=== PATIENT | female | born 2000 | race Caucasian/White ===

== ENCOUNTER 2022-10-17 06:57 | Outpatient (RCR) | payer OTHER, SELFPAY | END 2022-10-30 11:15 | disposition home or self-care (01) | LOC: PT 06:57 | PROVIDERS: Visit Provider Student in an Organized Health Care Education/Training Program | DX: M89.9 Disorder of bone, unspecified (principal); M94.9 Disorder of cartilage, unspecified; M25.572 Pain in left ankle and joints of left foot; M25.672 Stiffness of left ankle, not elsewhere classified | CPT/HCPCS: 97110; 97161 ==

== ENCOUNTER 2022-11-14 07:34 | Outpatient (OUT) | payer OTHER, SELFPAY ==
--- NOTE | 2022-11-14 07:45 | MR_ITS ---
The [address] [address] Patient Name: EMMANUEL LEON MRN: [id number] date: 2000 Sex: F Assigned Patient Location: MRI Current Patient Location: MRI Accession/Order Number: [id number] Exam Date: 11/14/2022 08:00 Report Date: 11/14/2022 11:11 At the request of: ANIVAL RUDOLPH Procedure: MR ankle RT wo con EXAM: MR ankle RT wo con REASON FOR EXAM: Right Ankle Instability M25.371. TECHNIQUE: Multiplanar, multisequence imaging of the right ankle was performed without contrast COMPARISON: Plain radiograph 09/11/2022. FINDINGS: Mild fusiform thickening and intermediate signal involving the Achilles tendon is consistent with tendinosis. No tear identified. The plantar fascia is intact. Laterally, the peroneal tendons demonstrate mild thickening and intermediate signal consistent with tendinosis. No tear identified. The superficial peroneal retinaculum is intact. Thickening and intermediate signal involving the anterior talofibular and calcaneofibular ligaments is consistent with prior lateral ligamentous injury. Well-corticated ossific bodies along the inferior margin of the distal fibula are also consistent with prior lateral ligamentous injury. Small amount of fluid is present within the anterolateral gutter. The remaining lateral ligaments are intact. Medially, the medial flexor tendons demonstrate normal thickness and signal without tendinosis or tear. The deep deltoid ligament is intact. The spring ligament is intact. Lisfranc ligament is partially imaged and appears intact. Anteriorly, the anterior extensor tendons demonstrate normal thickness and signal without tendinosis or tear. The bone marrow signal is without acute fracture or osteonecrosis. There is a full-thickness chondral defect involving the lateral talar dome spanning 1 cm in AP dimension. The displaced chondral fragment is not confidently identified. No evidence of an unstable osteochondral lesion. Small moderate tibiotalar and subtalar effusions are present. The subtalar joint is congruent. The sinus tarsi is nonedematous. The midfoot is congruent. The plantar musculature demonstrates normal bulk and signal. Remaining soft tissues are unremarkable. MR/MR ankle RT wo con IMPRESSION: 1. Sequela of prior lateral ligamentous injury. No evidence of acute lateral ligamentous injury. 2. 1 cm chondral defect involving the lateral talar dome. No evidence of an unstable osteochondral lesion. 3. Tibiotalar and subtalar effusion. 4. Achilles and peroneal tendinosis without tear. Electronically authenticated by: PAIGE NG Date: 11/14/2022 11:11
== END 2022-11-14 07:35 | disposition home or self-care (01) ==
PROVIDERS: Visit Provider Physician Assistant
DX: M25.371 Other instability, right ankle (principal); M94.9 Disorder of cartilage, unspecified; S93.401S Sprain of unspecified ligament of right ankle, sequela; M25.471 Effusion, right ankle; M76.61 Achilles tendinitis, right leg; M76.71 Peroneal tendinitis, right leg; X58.XXXS Exposure to other specified factors, sequela
CPT/HCPCS: 73721

== ENCOUNTER 2022-12-27 09:30 | Outpatient (OUT) | payer OTHER, SELFPAY ==
--- NOTE | 2022-12-27 10:04 | P.GSHP_ITS ---
History of Present Illness History of Present Illness Chief complaint: osteochondralitis, dissecans right ankle Narrative: Patient presents for preadmission testing. The patient reports she had an ankle fracture approximately two years ago and has increased pain and instability. She states she did take meloxicam with no relief off her symptoms. She denies numbness, tingling, weakness, or any other complaints. Review of Systems ROS Narrative REVIEW OF SYSTEMS: Negative except as stated in HPI, ten or more systems reviewed. Constitutional: No fever , chills, weakness ENT: No sore throat or epistaxis Cardiovascular: No edema, chest pain, palpitations, or activity intolerance Respiratory: No shortness of breath, cough, or wheezing Gastrointestinal: No abdominal pain, constipation, diarrhea, or vomiting Genitourinary: No dysuria or hematuria Neurological: No numbness, tingling, weakness, or headache Psychiatric: No mood changes [facility] Medical History (Updated 12/27/22 @ 09:48 by Maritza Rosen NP) Surgical History (Updated 12/27/22 @ 09:48 by Maritza Rosen NP) Family History (Updated 12/27/22 @ 09:48 by Maritza Rosen NP) Other Family history of hypertension Family history of skin cancer Social History (Updated 12/27/22 @ 09:45 by Maritza Rosen NP) Within the past year, how often did you have a drink containing alcohol: 2-4 times a month Previous occupational history: Commissioner [employer] Highest level of school completed/degree received: Bachelor's degree Meds Home Medications and Allergies Home Medications Medication Instructions Recorded Confirmed Type minoxidil 2.5 mg tablet 2.5 mg PO QDAY 12/27/22 12/27/22 History spironolactone 100 mg tablet 100 mg PO QDAY 12/27/22 12/27/22 History Allergies Allergy/AdvReac Type Severity Reaction Status Date / Time No Known Drug Allergies Allergy Verified 12/27/22 09:43 Exam Narrative Exam Narrative: Constitutional: Awake, alert, comfortable, well-appearing, nontoxic, interactive, vital signs as charted Head: Normocephalic, atraumatic Neck: Supple, normal appearance, normal range of motion, no meningeal signs, no lymphadenopathy Respiratory: No respiratory distress, breath sounds clear Cardiovascular: Regular rate and rhythm, strong and regular heart tones Musculoskeletal: Normal gait, no swelling or edema, Right lateral ankle tenderness with palpation, good strength, full range of motion, good capillary refill, sensation intact Skin: No rashes or induration, no lesions, only visible skin inspected Neuro: No neurological deficits, normal sensation Psychiatric: Oriented ?3, normal affect Assessment and Plan Assessment and Plan (1) Ankle instability: (2) Ankle pain: (3) Avulsion fracture of lateral malleolus: (4) Disorder of cartilage: (5) Osteochondritis dissecans: (6) Post-traumatic osteoarthritis, right ankle and foot: (7) Peroneal tendinitis: Plan Right ankle arthroscopic joint debridement, arthrotomy, repair of osteochondral defect, BMAC, stress exam under anesthesia, ligament and tendon repairs as needed scheduled with Dr. Velazco 01/10/2023.
== END 2022-12-27 09:31 | disposition home or self-care (01) ==
LOC: PST 09:31
PROVIDERS: PCP Family Medicine; Visit Provider Podiatrist Foot & Ankle Surgery
DX: Z01.818 Encounter for other preprocedural examination (principal); M93.271 Osteochondritis dissecans, right ankle and joints of right foot; M19.171 Post-traumatic osteoarthritis, right ankle and foot
CPT/HCPCS: G0463

== ENCOUNTER 2023-01-10 06:02 | Day surgery (SDC) | payer OTHER, SELFPAY ==
[2022-12-27 09:57] VITALS: BP 109/66; PULSE 68; RESP 14; TEMP 36.4; O2SAT 97; BMI 26.9
[2023-01-10] VITALS (12 sets, daily range): BP systolic 111–141; BP diastolic 63–84; PULSE 61–127; RESP 12–24; TEMP 36.7–37.7; O2SAT 94–100; BMI 26.9
--- NOTE | 2023-01-10 | FL_ITS ---
[address] [address] Patient Name: EMMANUEL LEON MRN: [id number] date: 2000 Sex: F Assigned Patient Location: [facility] Current Patient Location: [facility] Accession/Order Number: [id number] Exam Date: 01/10/2023 07:59 Report Date: 01/11/2023 10:04 At the request of: DEMARCUS BERMEO Procedure: FL fluoroscopy <1hr NON-READ EXAM: FL fluoroscopy <1hr NON-READ HISTORY: TECHNIQUE: FINDINGS: Please see Operative Report. Electronically authenticated by: RADIOLOGIST NO Date: 01/11/2023 10:04
[2023-01-10 06:14] LABS: Basophils Percent Auto 0.1 % (0.2-2.0); Eosinophils Absolute Auto 0.1 10^3/uL (0.0-0.7); Eosinophils Percent Auto 0.7 % (0.9-7.0); Hematocrit 39.2 % (36.0-48.0); Hemoglobin 13.4 g/dL (12.0-16.0); Immature Granulocytes Abs Auto 0.02 10^3/uL (0.00-0.03); Immature Granulocytes Pct Auto 0.3 % (0.0-0.5); Lymphocytes Absolute Auto 2.8 10^3/uL (1.2-3.8); Lymphocytes Percent Auto 38.3 % (20.5-60.0); Mean Corpuscular HGB Conc 34.2 g/dL (29.9-35.2); Mean Corpuscular Hemoglobin 29.3 pg (26.7-34.0); Mean Corpuscular Volume 85.6 fL (81.0-99.0); Mean Platelet Volume 10.2 fL (9.5-13.5); Monocytes Absolute Auto 0.5 10^3/uL (0.3-0.8); Monocytes Percent Auto 6.5 % (1.7-12.0); Neutrophils Absolute Auto 3.9 10^3/uL (1.4-6.5); Neutrophils Percent Auto 54.1 % (43.0-75.0); Platelet Count 240 10^3/uL (150-450); Red Blood Count 4.58 10^6/uL (4.20-5.40); Red Cell Distribution Width 11.8 % (11.0-15.0); White Blood Count 7.2 10^3/uL (4.0-11.0)
[2023-01-10 06:44] LABS: HCG Qualitative NEGATIVE (NEGATIVE)
[2023-01-10 06:55] LABS: Glucometer 92 mg/dL (74-106)
[2023-01-10] MEDS: LACTATED RINGER'S SOLUTION 1,000 ML 50 ML IV ×2 (06:58→11:23)
[2023-01-10] MEDS: CEFAZOLIN SODIUM/DEXTROSE,ISO 2 GM/50 ML PIGGYBACK IV (08:02)
--- NOTE | 2023-01-10 08:13 | PC.NURSE ---
time out performed as documented. placed 2L O2 via nasal cannula on pt per policy and then positioned prone per anesthesia. pt medicated per and the block was noted to start at 0734. pt tolerated procedure well and had no complaints throughout. vitals monitored by the property underwriter throughout procedure and were WNL. block completed at 0755,once completed pt repositioned supine with bed in lowest positioned,siderails up and call light within reach. pt will be monitored until she is taken back to the OR.
[2023-01-10] MEDS: PROMETHAZINE HCL 25 MG/ML VIAL 12.5 MG IV (11:30)
--- NOTE | 2023-01-10 11:56 | PC.NURSE ---
pts toes are warm and pink with good capillary refill
--- NOTE | 2023-01-10 11:58 | XR_ITS ---
The [address] [address] Patient Name: EMMANUEL LEON MRN: [id number] date: 2000 Sex: F Assigned Patient Location: [facility] Current Patient Location: Accession/Order Number: [id number] Exam Date: 01/10/2023 11:50 Report Date: 01/10/2023 17:48 At the request of: DEMARCUS BERMEO Procedure: XR ankle RT min 3V EXAM: XR ankle RT min 3V HISTORY: Post op COMPARISON: 09/11/2022 TECHNIQUE: 3 views of the right ankle were obtained. FINDINGS: The study is limited by the posterior mold. A faint calcification at the tip of the lateral malleolus is noted suggesting an old injury. There is no evidence of an acute fracture or dislocation. The mortise is intact. No osteochondral injury is identified. Soft tissue swelling laterally is noted. XR/XR ankle RT min 3V IMPRESSION: No acute fracture or dislocation. The extremity is wrapped in a posterior mold. The joint spaces are intact. Electronically authenticated by: DEMARCUS GUADALUPE Date: 01/10/2023 17:48
--- NOTE | 2023-01-10 12:00 | PM.ORONB ---
Brief Operative Note Date of procedure: 01/10/23 Pre-op diagnosis: right ankle OCD, arthritis, and possible instability Post-op diagnosis: other (RIGHT osteochondral defect of talus, posttraumatic ankle arthritis, lateral ankle instability secondary to ankle sprain, peroneal tendinosis, avulsion fracture from fibula, ankle impingement) Procedure: PROCEDURES PERFORMED: Ankle arthroscopy with extensive debridement, ankle arthrotomy, lateral ankle stabilization with modified Brostrom-Hyman, peroneal tendon repair, harvest and transplantation of bone marrow aspirate concentrate, intraoperative stress examination under fluoroscopy Application of short leg splint with all procedures performed on the RIGHT ankle INTRAOPERATIVE FINDINGS: stress examination revealed positive anterior drawer however syndesmosis and varus/valgus tilt were determined to be stable. Arthroscopy revealed advanced chondromalacia of the tibiotalar joint given patient's age. Stable contained osteochondral defect of lateral talar dome. Avulsion fracture of the fibula found and excised from the fibular tip. Thickening of the anterior talofibular ligament. Chronic tendinosis and intratendinous degeneration consistent with chronic pathology of the peroneal brevis tendon. Bone quality within normal limits given patient's age and gender PROCEDURE IN DETAIL: Patient was identified in pre op and consent was reviewed. Correct side and site were identified and marked. Pre-op antibiotics were started. Patient was brought to OR suite and place on table in a supine position. General anesthesia was administered. Tourniquet applied. Operative extremity was prepped and draped in usual sterile fashion. Formal time-out was performed. under live fluoroscopy the ankle was stressed in all planes noting a positive anterior drawer. Varus and valgus tilt as well as syndesmotic stress testing revealed stability in all other planes. a stab incision was placed 1 cm medial and 1 cm distal to the tibial tubercle and blunt dissection was taken down to bone. A trocar and cannula were inserted into the proximal tibia metaphysis and the trocar was removed. 60 mL of bone marrow aspirate was then obtained using the cannula and appropriate syringes. The bone marrow aspirate was then passed the office back table to be spun down. 3 mL of bone marrow aspirate concentrate were then drawn off the BMA and placed back onto the sterile table for later use. A 15 blade was used to create anterior medial ankle portal followed by use of hemostat and trochar then the arthroscopic camera was inserted. Anterior lateral portal was similarly created in standard safe location after identifying intermediate dorsal cutaneous nerve. All impingement and synovitic tissue was removed using a 3.5 mm aggressive shaver. after impingement and synovitic tissue was excised and osteochondral defect was noted on the lateral talar dome but did appear to be contained within the lateral talar wall. A probe was used and the defect was stable without adjacent fissuring. an arthrotomy waas then performed extending the lateral scope portal which aided in determining the borders of the osteochondral defect. the arthrotomy also allowed a targeting guide to be inserted into the extended lateral portal. using the arthroscopic camera in the medial portal starting guide was used to ensure ideal placement for drilling of the osteochondral defect. Using the guide K wires were placed through the guide multiple planes then a cannulated 1.7 mm drill bit was used to drill the defect from an inferior to superior direction. The cartilage of the talus was not invaded and drilling was done so under arthroscopic guidance. Arthroscopic instrumention was then removed. The portals were then closed with nylon suture. Lateral ankle incision was made over the posterior aspect of the fibular malleolus and extend past the fibular tip. Dissection was then carried posteriorly. Peroneal retinaculum and tendon sheath were incised to expose the peroneal tendons. The peroneal tendons were dislocated from the fibular groove for close inspection. There was synovitis and low lying peroneal brevis muscle which was excised. Inspection of the tendons demonstrated significant thickening of the peroneal brevis tendon. The brevis was then debrided removing degenerated tissue. The brevis was then repaired using a running absorbable stitch and was re-tubularized. The tendons were then relocated in the fibular groove which was of adequate depth. Range of motion of the ankle demonstrated no subluxation and smooth gliding of the peroneal tendons. Lateral Ankle Stabilization: Meticulous blunt dissection was used to expose the ATFL and associated capsular tissue. The ATFL was thickend and lax upon stress examination. The ATFL was incised and arthrotomy was performed. The periosteum off of the distal lateral fibula was elevated from the fibular tip. the avulsion fracture was found at the distal fibular tip and was excised and passed the back table. A rongeur was used on the distal anterior fibular malleolus to create a trough. Drill holes were created in the trough created on distal fibula. Two 3.3 mm suture anchors were inserted into the drill holes created according to manufacture's directions. All sutures in all were passed through the ATFL then passed through the extensor retinaculum. The foot was then held in maximum dorsiflexion and eversion and the sutures were tied. The sutures were then passed through the periosteum of the fibula to reapproximate all capsular and periosteal tissue. The sututres were then tied and cut. Anterior drawer was negative and ankle had good ROM. The surgical site was irrigated with copious amounts sterile saline. The tendon sheath was reapproximated and the superior peroneal retinaculum repaired with a pants over vest absorbable suture. Skin was closed in layers and the tourniquet was deflated with a prompt hyperemic response. The bone marrow aspirate concentrate was then injected into the ankle joint. A dry sterile dressing consisting of Xeroform on the incisions followed by 4 x 4 gauze, ABDs, and Kerlix were applied. Multiple layers of cast padding were then applied to ensure all bony prominences were well-padded. A plaster posterior splint was then applied which was held in place by Juventino wraps. Capillary refill time to all digits was evaluated and had appropriate response. POSTOPERATIVE PLAN: Discharge home under family's care Post op instructions provided verbally and written prescription(s) were placed in chart NWB operative foot/ankle x3 wks Follow-up in 1 week Implants: Medline suture anchors 3.3 mm (x2) Anesthesia: regional and General-LMA Surgeon: Alphonso Velazco Estimated blood loss (mL): 100 Pathology: other (avulsion fracture and peroneal tendon) Condition: stable Disposition: PACU Preoperative Details Reason for procedure: patient is a 22-year-old female who sustained right ankle fracture approximately two years ago. She been initially treated with physical therapy ASO ankle brace and anti-inflammatories such as naproxen without help. She presents me relating to deep ankle pain with popping and catching of the ankle joint, instability symptoms and frequent ankle sprains as well as pain over the peroneal tendons. MRI was obtained and showed prior damage to the anterior talofibular ligament consistent with prior sprain, 1 cm osteochondral defect on the lateral talar dome, peroneal tendinosis all of which were symptomatic on examination. the osteochondral defect of the large did appear to be contained and stable. MRI also showed Achilles tendinosis which is currently asymptomatic. Due to her failure to respond to nonsurgical care she wished to proceed with surgical intervention. I discussed all the potential risks and benefits and answered all of her questions. Of note I highlighted at there is concern for recurrent/recalcitrant ankle pain despite surgery from worsening arthritis and impingement. Also potential for repeat ankle sprain and peroneal tendon tear. Given her age and activity level it was stressed to her that she will likely require further surgery in the future but the goal of the surgery is to alleviate pain and enhance function.
[2023-01-10 12:15] LABS: Glucometer 101 mg/dL (74-106)
[2023-01-10] MEDS: TRAMADOL HCL 50 MG TABLET 100 MG PO (12:55)
[2023-01-10] MEDS: KETOROLAC TROMETHAMINE 30 MG/ML VIAL IVP (12:57)
== END 2023-01-10 13:15 ==
PROVIDERS: Visit Provider Podiatrist Foot & Ankle Surgery
PROC: (CPT 27625; principal; 2023-01-10 07:30)
DX: M93.271 Osteochondritis dissecans, right ankle and joints of right foot (principal); M19.171 Post-traumatic osteoarthritis, right ankle and foot; M76.71 Peroneal tendinitis, right leg; M25.371 Other instability, right ankle; M94.9 Disorder of cartilage, unspecified
CPT/HCPCS: 27625; 27675; 27698; 29898; 38232; 36415; 64445; 73610; 76000; 76942; 82948; 84703; 85025; 88304; 88305; 88311; C1713; J2704

== ENCOUNTER 2023-01-12 09:25 | Emergency (ER) | payer OTHER, SELFPAY ==
[2023-01-12 09:32] VITALS: BP 146/78; PULSE 66; RESP 14; TEMP 36.9; O2SAT 99; BMI 27.4
--- NOTE | 2023-01-12 09:36 | PC.NURSE ---
Pt had R ankle surgery with Dr Velazco on . Today c/o cast rubbing on outer maleoli making it painful. Wants cast to be adjusted. Able to still move toes, cap refill adequate no numbness or tingling
--- NOTE | 2023-01-12 10:06 | ED_ITS ---
HPI - General Adult General Chief complaint: Extremity Injury, Lower Stated complaint: HAD SURGERY 2 DAYS AGO/NEEDS SPLINT READJUSTED Time Seen by Provider: 01/12/23 09:30 Source: patient Mode of arrival: walk-in Limitations: no limitations History of Present Illness HPI narrative: Patient presents with pain alongside the lateral aspect of the right ankle. 2 days ago she underwent right Ankle arthroscopy with extensive debridement, ankle arthrotomy, lateral ankle stabilization with modified Brostrom-Hyman, peroneal tendon repair, harvest and transplantation of bone marrow aspirate concentrate, intraoperative stress examination under fluoroscopy. She had intraoperative application of short leg splint posteriorly. She is concerned that the splint might be rubbing against the ankle causing pain. She was prescribed Motrin and [place]. She has been taking the motrin but does not want to take the norco. They did not call Dr Velazco today. Mother told me that they were told to come to the ED over the weekend if they had any issues. On questioning the patient admits to tingling of the right great toe - more when she is up on the crutches but still present now. She denied any pain in the toes of the right foot. She denied any right calf pain or right popliteal pain. No fever or vomiting. Related Data Home Medications Medication Instructions Recorded Confirmed minoxidil 2.5 mg tablet 2.5 mg PO QDAY 12/27/22 01/10/23 spironolactone 100 mg tablet 100 mg PO QDAY 12/27/22 01/10/23 hydrocodone 5 mg-acetaminophen 325 1 tab PO Q6H PRN pain 01/10/23 01/10/23 mg tablet Previous Rx's Medication Instructions Recorded pregabalin 50 mg capsule (Lyrica) 50 mg PO BID PRN pain #10 caps 01/12/23 Allergies Allergy/AdvReac Type Severity Reaction Status Date / Time No Known Drug Allergies Allergy Verified 12/27/22 09:43 [facility] Medical History (Updated 01/12/23 @ 10:05 by Dilshad Godoy) Ankle instability ?M25.373 - Other instability, unspecified ankle (ICD-10) Ankle pain ?M25.579 - Pain in unspecified ankle and joints of unspecified foot (ICD-10) Asthma ?J45.909 - Unspecified asthma, uncomplicated (ICD-10) Avulsion fracture of lateral malleolus ?S82.63XA - Displaced fracture of lateral malleolus of unspecified fibula, initial encounter for closed fracture (ICD-10) COVID-19 ?U07.1 - COVID-19 (ICD-10) Diarrhea ?R19.7 - Diarrhea, unspecified (ICD-10) Disorder of cartilage ?M94.9 - Disorder of cartilage, unspecified (ICD-10) Heartburn ?R12 - Heartburn (ICD-10) Osteoarthritis ?M19.90 - Unspecified osteoarthritis, unspecified site (ICD-10) Osteochondritis dissecans ?M93.20 - Osteochondritis dissecans of unspecified site (ICD-10) Peroneal tendinitis ?M76.70 - Peroneal tendinitis, unspecified leg (ICD-10) Post-traumatic osteoarthritis, right ankle and foot ?M19.171 - Post-traumatic osteoarthritis, right ankle and foot (ICD-10) Surgical History (Updated 12/27/22 @ 09:48 by Maritza Rosen NP) H/O removal of cyst ?Z98.890 - Other specified postprocedural states (ICD-10) History of wisdom tooth extraction ?K08.409 - Partial loss of teeth, unspecified cause, unspecified class (ICD- 10) Family History (Updated 12/27/22 @ 09:48 by Maritza Rosen NP) Other Family history of hypertension Family history of skin cancer Social History (Updated 01/10/23 @ 06:24 by Carmenza Chavarria) Within the past year, how often did you have a drink containing alcohol: 2-4 times a month Smoking status: Never smoker Non-prescribed substance use: denies use Previous occupational history: [employer] Highest level of school completed/degree received: Bachelor's degree Exam Narrative Exam Narrative: Nurses notes and vital signs reviewed and patient is not hypoxic. afebrile General: Well-appearing and in no apparent distress. Skin: Warm, dry, no pallor noted. Cardiovascular: normal peripheral perfusion Respiratory: No accessory muscle use or respiratory distress. Musculoskeletal: RIGHT LE - harmony wrap covered splint extending from the right calf through to the sole of the distal right foot. normal ROM of toes of the right foot with normal capillary refill. No right popliteal tenderness. Neurological: A&O x4. No cranial nerve dysfunction observed. Sensation and motor function intact. Psychiatric: Cooperative and interactive. Normal mood and affect. Constitutional Vital Signs, click to edit/add: Last Vital Signs Temp 98.5 F 01/12/23 09:32 Pulse 66 01/12/23 09:32 Resp 14 01/12/23 09:32 BP 146/78 H 01/12/23 09:32 Pulse Ox 99 01/12/23 09:32 O2 Del Method Room Air 01/12/23 09:32 Course Vital Signs Vital signs: Vital Signs Temperature 98.5 F 01/12/23 09:32 Pulse Rate 66 01/12/23 09:32 Respiratory Rate 14 01/12/23 09:32 Blood Pressure 146/78 H 01/12/23 09:32 Pulse Oximetry 99 01/12/23 09:32 Oxygen Delivery Method Room Air 01/12/23 09:32 Temperature 98.5 F 01/12/23 09:32 Pulse Rate 66 01/12/23 09:32 Respiratory Rate 14 01/12/23 09:32 Blood Pressure 146/78 H 01/12/23 09:32 Pulse Oximetry 99 01/12/23 09:32 Oxygen Delivery Method Room Air 01/12/23 09:32 Medical Decision Making MDM Narrative Medical decision making narrative: The patient had extensive surgery of the right ankle/lower leg and now the nerve block has worn off 48 hours post-op. She is having pain along the lateral right ankle and believed that the fixed splint was the problem but exam revealed that is not the case. She became emotional when I told her that the splint was not the issue and that the symptoms she was having are typical post-op symptoms and would improve over time and that taking the pains meds will help. I called and spoke with Dr Velazco about this patient's case including her pain, tingling and exam findings. I let him know that I removed the harmony wrap and the splint edge was more than 2 inches from the area of pain, which is along the surgical incision. I let him know that I loosened the harmony wrap slightly. I also let him know that the patient is taking the motrin but did not want to take the norco. He asked me to prescribe Lyrica for this patient and I gave her a 5 day supply. I also made sure that the patient and mother had Dr Velazco's # for any questions. Patient was instructed to stay off her feet as much as possible this weekend and keep the right leg elevated to limit swelling. Discharge Plan Discharge Chief Complaint: Extremity Injury, Lower Clinical Impression: Acute right ankle pain, Post-op pain Patient Disposition: Home, Self-Care Time of Disposition Decision: 09:59 Prescriptions / Home Meds: New pregabalin [Lyrica] 50 mg capsule 50 mg PO BID PRN (Reason: pain) Qty: 10 0RF No Action minoxidil 2.5 mg tablet 2.5 mg PO QDAY spironolactone 100 mg tablet 100 mg PO QDAY hydrocodone-acetaminophen 5-325 mg tablet 1 tab PO Q6H PRN (Reason: pain) Patient Comments: 1-2 tablets every 6 hours as needed Instructions: Leg Pain (ED) Stand Alone Forms: Portal Instructions Referrals: Alphonso Velazco DPM [Physician] - 01/15/23 Discharge Date/Time: 01/12/23 10:14
== END 2023-01-12 10:14 | disposition home or self-care (01) ==
PROVIDERS: Emergency Provider Emergency Medicine; PCP Family Medicine
DX: G89.18 Other acute postprocedural pain (principal); M25.571 Pain in right ankle and joints of right foot; Z86.16 Personal history of COVID-19; Z79.899 Other long term (current) drug therapy
CPT/HCPCS: 99283

== ENCOUNTER 2023-01-30 14:17 | Outpatient (OUT) | payer OTHER, SELFPAY ==
--- NOTE | 2023-01-30 | XR_ITS ---
[facility] [id number] Patient Name: EMMANUEL LEON MRN: [id number] date: 2000 Sex: F Assigned Patient Location: [facility] Current Patient Location: Accession/Order Number: [id number] Exam Date: 01/30/2023 14:27 Report Date: 01/31/2023 00:38 At the request of: DEMARCUS BERMEO Procedure: XR ankle RT min 3V EXAM: XR ankle RT min 3V HISTORY: Postoperative evaluation COMPARISON: Ankle x-rays 01/10/2023 and MRI 11/14/2022 TECHNIQUE: 3 views FINDINGS: IMPRESSION: There has been removal of the patient's posterior plaster splint. Lateral subcutaneous soft tissue edema. Again demonstrated are the subchondral changes of the lateral shoulder of the patient's talar talar dome within the region of the previously visualized chondral defect. Small talocrural joint effusion. Electronically authenticated by: BERNIE HARDWICK Date: 01/31/2023 00:38
== END 2023-01-30 14:18 | disposition home or self-care (01) ==
LOC: RAD 14:17
PROVIDERS: PCP Family Medicine; Visit Provider Podiatrist Foot & Ankle Surgery
DX: M25.571 Pain in right ankle and joints of right foot (principal)
CPT/HCPCS: 73610

== ENCOUNTER 2023-02-22 06:58 | Outpatient (RCR) | payer OTHER, SELFPAY | END 2023-04-07 10:00 | disposition home or self-care (01) | LOC: PT 06:58 | PROVIDERS: PCP Family Medicine; Visit Provider Podiatrist Foot & Ankle Surgery | DX: M25.371 Other instability, right ankle (principal) | CPT/HCPCS: 97110; 97112; 97161 ==

== ENCOUNTER 2023-12-31 08:50 | Outpatient (OUT) | payer OTHER, SELFPAY ==
--- NOTE | 2023-12-31 | XR_ITS ---
[place] [id number] Patient Name: EMMANUEL LEON MRN: [id number] date: 2000 Sex: F Assigned Patient Location: Current Patient Location: Accession/Order Number: [id number] Exam Date: 12/31/2023 08:52 Report Date: 01/02/2024 04:57 At the request of: DEMARCUS BERMEO Procedure: XR ankle RT min 3V PROCEDURE: XR ankle RT min 3V HISTORY: RIGHT ANKLE PAIN COMPARISON: XR ankle right 01/30/2023 FINDINGS: BONES:Tiny degenerative osteophyte along the anterior articular margin of the tibial plafond. No articular surface irregularity or appreciable joint space narrowing. No fracture or dislocation. SOFT TISSUES:No visible soft tissue swelling. EFFUSION:None visible. OTHER: Negative. XR/XR ankle RT min 3V IMPRESSION: 1. No acute bone abnormality. 2. Minimal degenerative changes along the anterior articular margin of the ankle joint. Electronically authenticated by: ROSMERY MIRANDA Date: 01/02/2024 04:57
--- OUTSIDE RECORDS SUMMARY | 2023-12-31 09:01 | XMS_ITS | CCD ---
Author Organization [facility] Inform ion [facility] Care Team Providers Care Diesel Engine Tester Name Role Phone DEMARCUS BERMEO Admitting Unavailable CELSOANDER, DEMARCUS Attending Unavailable HIGHLANDER, DEMARCUS Admitting Unavailable CELSOANDER, DEMARCUS Attending Unavailable RUTH, DR ROSMERY Barrientos Consulting Unavailable HIGHLANDER, DEMARCUS Consulting Unavailable HIGHLANDER, DEMARCUS Attending Unavailable MIRTA, DR BERNIE Rain Consulting Unavailable HIGHLANDER, DEMARCUS Admitting Unavailable HIGHLANDER, DEMARCUS Consulting Unavailable Kaylen Barker Unavailable KRIS Barker Attending Provider Kaylen Barker Admitting Unavailable Kaylen Barker Attending Unavailable DefBernie boswell MD Primary Care Provider [phone] BERNIE SANCHEZ Attending Unavailable DEFAC, BERNIE Forde Referring Unavailable DEFRANCE, BERNIE Forde Primary Care Unavailable DEFRANCE, BERNIE Forde Attending Unavailable DEFRANCE, BERNIE Forde Referring Unavailable DEFRANCE, BERNIE Forde Primary Care Unavailable DEFRANCE, BERNIE Forde Referring Unavailable DEFRANCE, BERNIE Forde Primary Care Unavailable DEFAC, BERNIE Forde Attending Unavailable DEFAC, BERNIE Forde Referring Unavailable DEFRANCE, BERNIE Forde Primary Care Unavailable DEFRANCE, BERNIE Forde Attending Unavailable DEFRANCE, BERNIE Forde Referring Unavailable DEFRANCE, BERNIE Forde Primary Care Unavailable INGRID SARKAR Attending Unavailable DEFRANCEBERNIE Referring Unavailable DEFRANCE, BERNIE Forde Primary Care Unavailable Medications Current Medications Medication Drug Class(es) Dates Sig (Normalized) Sig (Original) 200 actuat albuterol 0.09 mg/actuat dry powder inhaler (1 source) beta2-Adrenergic Agonist Start: 03-09-2019 End: 05-10-2023 take 90 ug by inhalation every six hours as needed albuterol sulfate (PROAIR RESPICLICK) 90 mcg/actuation aerosol powdr breath activated Inhale 90 mcg every 6 (six) hours as needed (wheezing). Inhale 2 puffs every 6 (six) hours as needed for wheezing or shortness of breath. 1 each 2 03/09/2019 05/10/2023 Discontinued (Alternate therapy) ciclopirox 10 mg/ml medicated shampoo (3 sources) Start: 10-29-2022 ciclopirox (LOPROX) 1 % shampoo WASH SCALP 3 TIMES WEEKLY AND ALLOW TO SIT FOR 5-10 MINUTES BEFORE RINSING 0 10/29/2022 Active dapsone 0.05 mg/mg topical gel (3 sources) Sulfone Start: 10-31-2022 dapsone (ACZONE) 5 % topical gel escitalopram 10 mg oral tablet (4 sources) Serotonin Reuptake Inhibitor Start: 06-10-2023 take 1 tablet by mouth in the morning escitalopram (LEXAPRO) 10 mg tablet Take 1 tablet (10 mg total) by mouth in the morning. 30 tablet 11 06/10/2023 Active Start: 05-10-2023 End: 06-10-2023 take 1 tablet by mouth in the morning escitalopram (LEXAPRO) 10 mg tablet Take 1 tablet (10 mg total) by mouth in the morning. 30 tablet 5 05/10/2023 06/10/2023 Discontinued (Reorder) meloxicam 15 mg oral tablet (1 source) Nonsteroidal Anti-inflammatory Drug End: 05-10-2023 take 1 tablet by mouth in the morning meloxicam (MOBIC) 15 mg tablet Take 1 tablet (15 mg total) by mouth in the morning. 0 05/10/2023 Discontinued (Alternate therapy) minoxidil 2.5 mg oral tablet (3 sources) Arteriolar Vasodilator minoxidiL (LONITEN) 2.5 mg tablet Minoxidil 0 Active spironolactone 50 mg oral tablet (3 sources) Aldosterone Antagonist take 2 tablets by mouth in the morning spironolactone (ALDACTONE) 50 mg tablet Take 2 tablets (100 mg total) by mouth in the morning. 0 Active Completed/Discontinued Medications Medication Drug Class(es) Dates Sig (Normalized) Sig (Original) Ethinyl Estradiol / norgestimate (1 source) Progestin, Estrogen take 1 tablet by mouth once daily Ortho Tri-Cyclen Lo 0.18/0.215/0.25 MG-25 MCG 1 tablet Orally Once a day Not-Taking naproxen sodium 550 mg oral tablet (2 sources) Nonsteroidal Anti-inflammatory Drug Start: 10-07-2020 take 1 tablet by mouth every twelve hours Anaprox DS 550 MG 1 tablet Orally Twice a day for 10 days Oct, Not-Taking Start: 10-11-2019 take 1 tablet by malinda th every twelve hours at mealtime as needed Naproxen Sodium 550 MG 1 tablet with food or milk as needed Orally every 12 hrs for 7 days Oct, Not-Taking silver sulfADIAZINE 10 mg/ml topical cream (1 source) Sulfonamide Antibacterial Start: 10-11-2019 Silvadene 1 % 1 application to affected area Externally Twice daily Oct, Not-Taking Problems Active Problems Problem Classification Problem Date Documented Da te Episodic/Chronic Asthma (3 sources) Exercise-induced asthma; Translations: [Exercise induced bronchospasm] Onset: 11-22-2017 11-22-2017 Chronic Fracture of lower limb (1 source) Displaced fracture of lateral malleolus of right fibula, initial encounter for closed fracture; Translations: [DSPL FX LAT MALL RT FIB INIT TEE FX] Onset: 10-21-2020 Episodic Other bone disease and musculoskeletal deformities (1 source) Disorder of cartilage, unspecified Episodic Other non-traumatic joint disorders (5 sources) Pain in right ankle and joints of right foot; Translations: [PAIN IN RIGHT ANKLE] Onset: 11-10-2020 Episodic Screening and history of mental health and substance abuse codes (1 source) Encounter for screening for depression; Translations: [Encounter for screening for depression] Onset: 11-20-2023 Episodic Skin and subcutaneous tissue infections (1 source) Cellulitis of left finger; Translations: [Cellulitis of left finger] Onset: 10-23-2023 Episodic Sprains and strains (4 sources) Sprain of unspecified ligament of right ankle, subsequent encounter; Translations: [SPRAIN UNS LIGAMENT RT ANKLE SUBSQT] Onset: 10-20-2020 Episodic Unclassified (1 source) Pain in right ankle and joints of right foot; Translations: [Pain in right ankle and joints of right foot] Onset: 09-11-2022 Unclassified (1 source) Gynecologic Exam Onset: 11-20-2023 Unclassified (1 source) infected finger Onset: 10-23-2023 Past or Other Problems Problem Classification Problem Date Documented Date Episodic/Chronic Contraceptive and procreative management (5 sources) Subcutaneous contraceptive implant present; Translations: [Presence of (intrauterine) contraceptive device] Onset: 04-20-2020 04-20-2020 Episodic Miscellaneous mental health disorders (3 sources) Dysphoric mood; Translations: [Other symptoms and signs involving emotional state] Onset: 06-10-2023 05-10-2023 Episodic Mood disorders (3 sources) Mood disorders Onset: 05-10-2023 05-10-2023 Unclassified (3 sources) Onset: 11-07-2022 11-07-2022 Results Test Name Value Interpretation Reference Range Facil ity XR ankle RT min 3V*on 2022 XR ankle RT min 3V* [facility] Main [place] [address] [place] [address] XRay Report Signed Patient: Feliciano Alcocer MR#: [id number] : 2000 Acct:[id number] Age/Sex: 22 / F ADM Date: 09/11/22 Loc: XDUCLY Room: Type: [facility] Attending Dr: Kaylen Barker APRN Copies to: Kaylen Barker APRN Ordering Provider: Kaylen Barker APRN Date of Service: 09/11/22 XR/XR ankle RT min 3V*: Acute right ankle pain XR ankle RT min 3V* 09/11/2022 5:47 PM SIGNS AND SYMPTOMS: Right ankle pain, history of previous fracture PROTOCOL: Frontal, lateral, and oblique radial graphs of the right ankle COMPARISON: 10/07/2020 FINDINGS: There is evidence of a healed fracture at the tip of the lateral malleolus. There is mild cortical irregularity along the lateral corner of the talar dome suggesting an osteochondral lesion of the talar dome. This is new compared to the prior exam. No acute displaced fracture is noted. Mild soft tissue swelling is present. XR/XR ankle RT min 3V* IMPRESSION: There is mild cortical irregularity along the lateral corner of the talar dome suggesting an osteochondral lesion of the talar dome. This is new compared to the prior exam. Mild soft tissue swelling is present. There is evidence of a healed fracture at the tip of the lateral malleolus. Impression dictated by: Toy Courtney M.D.09/11/2022 6:03 PM Dictation Location: [facility]--13 Transcribed By: [place] 09/11/221802 Dictated By: Toy Courtney II, MD 09/11/221800 Signed By: 09/11/221802 Normal [facility] XR ankle RT min 3V* [id number] Other XR ankle RT min 3V* [facility] dev[facility]k Other XR ankle RT min 3V* [address] [place] [address] dev9k Other XR ankle RT min 3V* [place] [address] zulily Other XR ankle RT min 3V* XRay Report zulily Other XR ankle RT min 3V* Signed zulily Other XR ankle RT min 3V* Patient: Feliciano Alcocer MR#: [id number] zulily Other XR ankle RT min 3V* [id number] zulily Other XR ankle RT min 3V* : 2000 Acct:[id number] zulily Other XR ankle RT min 3V* Age/Sex: 22 / F ADM Date: 09/11/22 zulily Other XR ankle RT min 3V* Loc: XDUCLY Room: Type: [facility] zulily Other XR ankle RT min 3V* Attending Dr: Kaylen Barker [facility] zulily Other XR ankle RT min 3V* Copies to: Kaylen Barker [facility] zulily Other XR ankle RT min 3V* Ordering Provider: Kaylen Barker [employer] zulily Other XR ankle RT min 3V* Date of Service: 09/11/22 zulily Other XR ankle RT min 3V* XR/XR ankle RT min 3V*: Acute right ankle pain zulily Other XR ankle RT min 3V* XR ankle RT min 3V* 09/11/2022 5:47 PM zulily Other XR ankle RT min 3V* SIGNS AND SYMPTOMS: Right ankle pain, history of previous fracture z[facility]ily Other XR ankle RT min 3V* PROTOCOL: Frontal, lateral, and oblique radial graphs of the right ankle zulily Other XR ankle RT min 3V* COMPARISON: 10/07/2020 zulily Other XR ankle RT min 3V* FINDINGS: zulily Other XR ankle RT min 3V* There is evidence of a healed fracture at the tip of the lateral malleolus. There is mild cortical zulily Other XR ankle RT min 3V* irregularity along the lateral corner of the talar dome suggesting an osteochondral lesion of the zulily Other XR ankle RT min 3V* talar dome. This is new compared to the prior exam. No acute displaced fracture is noted. Mild soft zulily Other XR ankle RT min 3V* tissue swelling is present. zulily Other XR ankle RT min 3V* XR/XR ankle RT min 3V* zulily Other XR ankle RT min 3V* IMPRESSION: zulily Other XR ankle RT min 3V* There is mild cortical irregularity along the lateral corner of the talar dome suggesting an zulily Other XR ankle RT min 3V* osteochondral lesion of the talar dome. This is new compared to the prior exam. zulily Other XR ankle RT min 3V* Mild soft tissue swelling is present. zulily Other XR ankle RT min 3V* There is evidence of a healed fracture at the tip of the lateral malleolus. zulily Other XR ankle RT min 3V* Impression dictated by: Toy Courtney M.D.09/11/2022 6:03 PM zulily Other XR ankle RT min 3V* Dictation Location: [facility]- zulily Other XR ankle RT min 3V* Transcribed By: [place] 09/11/22 [facility] zulily Other XR ankle RT min 3V* Dictated By: Toy Courtney II, MD 09/11/22 [facility] zulily Other XR ankle RT min 3V* Signed By: zulily Other XR ankle RT min 3V* 09/11/22 [facility] zulily Other CNOVon 06-22-2020 CNOV Office Visit (ORAVON ) FELICIANO ALCOCER ([id number]) 2 F Date Time Provider Department 06/22/20 9:15 AM HAO BROWN During your visit today, we recorded the following information about you: Weight Height 74.4 kg 1.676 m Hao Brown DO 06/22/2020 10:03 AM Signed [facility] Office Visit Documentation Note [facility] Sports Medicine Orthopaedic and Rheumatologic [place] REASON FOR VISIT / CHIEF COMPLAINT SERVICE DATE: June 22, 2020 PCP: Bernie Melendez MD CHIEF COMPLAINT: Feliciano Alcocer is a 20 year old female who presents today for follow up office visit for her right hip pain. She states her injury is from running many years ago. She was last seen in clinic 10/01/19 and received a corticosteroid injection with no relief. She states her pain today while seated is 5/10 and dull/aching. Pain at worst with exercise, e.g. squatting/lunging 8/10. She has completed some physical therapy and reports it was helpful. Patient presents with: Right Hip - Established Patient, Pain HISTORY OF PRESENT ILLNESS (HPI) PAIN EVALUATION 06/22/2020 0923 Pain Level: 5 Pain Location: Hip-Right Pain at worst 8/10 Description: Aching;Dull Duration Units: Years Frequency: Intermittent Intervention: Relaxation;Exercise Brief Review: right hip pain Any new injury, since being seen last: No REVIEW OF SYSTEMS ROS: Neurologic: Any numbness or tingling in the LOCAL AREA? No Endocrine: Any diagnosis of diabetes? No ALLERGIES ALLERGIES No Known Allergies PAST MEDICAL HISTORY No past medical history on file. PHYSICAL EXAMINATION PHYSICAL EXAMINATION: Body Habitus:well nourished and no acute distress Psych: normal Sensation: sensation to light touch is grossly normal bilaterally Swelling: no swelling noted Specific MSK Exam Ortho Exam FADIR pain. Good ROM otherwise. Gluteal active - no pain RADIOLOGY: IMAGING: No imaging was performed today. ASSESSMENT / PLAN CLINICAL IMPRESSION / ASSESSMENT: (S73.191D) Tear of right acetabular labrum, subsequent encounter (primary encounter diagnosis) (S73.191A) Tear of right acetabular labrum, initial encounter (M25.551) Pain of right hip joint RECOMMENDATION / PLAN: -CSI and PT failed. Has stopped swimming in college. Wants to do competitive crossfit. Discussed overall need to conform to good form - etc. Discussed consult to Dr. Dukes MRI from 07/2019 Impression IMPRESSION: Nondisplaced tear of the right anterior superior acetabular labrum. Verbal health education was given to patient. Patient verbalizes understanding and agrees with the treatment plan as detailed above. Hao Brown D.O. [facility] Orthopaedic and Rheumatologic [place] Team Physician, [facility] Consulting Physician, [facility] Zaina Turner, Pathology Collector [phone] Robert Cabrera DO 06/22/2020 9:52 AM Addendum We recommend seeing Dr. Dukes (hip surgeon) to discuss options for your labral tear. We will work on getting you an appointment with him. Referring Provider: HAO BROWN [[id number]] Allergies As of Date: 06/22/2020 (No Known Allergies) Date Reviewed: 06/22/2020 Reviewed by: Whit Balderrama) Isela - Fully Assessed Reason for Visit: Established Patient [175] Pain [78] Primary Visit Diagnosis:Tear of right acetabular labrum, subsequent encounter [S73.191D] Other Visit Diagnoses:Tear of right acetabular labrum, initial encounter [S73.191A] Pain of right hip joint [M25.551] Prescriptions as of 06/22/2020 Sig: ISOTRETINOIN 40 MG CAPSULE Take 40 mg by mouth twice misty* Problem List As Of Date: 06/22/2020 (None) Other instructions from your clinician: We recommend seeing Dr. Dukes (hip surgeon) to discuss options for your labral tear. We will work on getting you an appointment with him. Encounter Status:Closed by HAO BROWN DO on 06/22/20 [facility] ALLIED HEALTH 07-08-2019 ALLIED HEALTH HNO ID: [id number] Author: Asia De Souza (Rt) Service: ? Author Type: Plant Taxonomist Type: Allied Health Filed: 07/08/2019 11:01 AM Note Text: Radiology Service Progress Note PATIENT NAME: Feliciano Alcocer DATE OF SERVICE: July 08, 2019 TIME: 10:35 AM PATIENT IDENTITY VERIFICATION COMPLETED USING TWO (2) IDENTIFIERS: Name and Date of confirmed by patient verbally and Name and Date of confirmed by identification band. PATIENT GENDER DATA: Female. status: : No status: NO. PATIENT RELEVANT IMPLANT DATA REVIEWED: Yes RADIOLOGY DEPARTMENT: MR; Exam(s) Completed: Lower MSK: Hip, right PERIPHERAL IV DATA: Not applicable SIGNED BY: RT Ap, Ashleigh ONTIVEROS, Joanna Moreno RT July 08, 2019 10:35 AM Normal [facility] MRI HIP WO IVCON RTon 2019 MRI HIP WO IVCON RT * * *Final Report* * * DATE OF EXAM: Jul 08 2019 11:06AM [facility] 0207 - MRI HIP WO IVCON RT / PROCEDURE REASON: Pain of right hip joint * * * * Physician Interpretation * * * * MRI HIP WO IVCON RT HISTORY: Hip pain. Pain of right hip joint TECHNIQUE: Routine MRI of the pelvis and right hip without IV contrast. COMPARISON: Radiograph performed 06/19/2019 RESULT: Hip joints: Right hip: There is a tear of the anterior superior labrum (series 7 image 11, series 6 image 17). No fracture or osteonecrosis. No focal chondral abnormality is identified. Left hip: The labrum and articular cartilage appear to be preserved though evaluation limited by the large [id number] images. SI Joints: Within normal limits. Bone Marrow: No fracture, bone contusion, marrow replacing lesion, or osteonecrosis. Tendons: Rectus femoris tendons, iliopsoas tendons, hamstring tendons, hip adductor, and abductor tendons are intact bilaterally. Bursae: No significant trochanteric or sub-gluteal bursal fluid to suggest bursitis. Muscles: Muscle bulk and signal intensity are within normal limits. Nerves: The visualized portions of the lumbosacral plexus and sciatic nerves are within normal limits. Visceral Pelvis: Limited evaluation of the visceral pelvis is unremarkable. Other: Small volume, likely physiologic free fluid within the pelvis. Physiologic cysts in the ovaries. IMPRESSION: Nondisplaced tear of the right anterior superior acetabular labrum. Braille Proofreader: PSCB Transcribe Date/Time: Jul 08 2019 11:20A Dictated by : DARLIN MARTÍNEZ MD This examination was interpreted and the report reviewed and electronically signed by: DARLIN MARTÍNEZ MD on Jul 08 2019 11:31AM EST [id number] Normal [facility] Vital Signs Date Time Vital Sign Value Performing Clinician Facility 06-10-2023 08:07-0500 Body mass index (BMI) [Ratio] 27.72 kg/m2 [facility] 06-10-2023 08:07-0500 Body temperature 97.81 [degF] Bernie Sanchez MD Work Phone: [facility] 06-10-2023 08:07-0500 Body weight 80.29 kg Bernie Sanchez MD Work Phone: [facility] 06-10-2023 08:07-0500 Diastolic blood pressure 70 mm[Hg] Bernie Sanchez MD Work Phone: [facility] 06-10-2023 08:07-0500 Heart rate 74 /min Bernie Sanchez MD Work Phone: [facility] 06-10-2023 08:07-0500 Respiratory rate 16 /min Bernie Sanchez MD Work Phone: [facility] 06-10-2023 08:07-0500 Systolic blood pressure 120 mm[Hg] Bernie Sanchez MD Work Phone: [facility] 05-31-2023 08:02-0500 Body height 170.2 cm Ingrid Rodríguez DEPARTMENT HEAD [employer] INSTRUCTOR Work Phone: [facility] 05-31-2023 08:02-0500 Body mass index (BMI) [Ratio] 27.53 kg/m2 Ingrid Rodríguez DEPARTMENT [employer]ING INSTRUCTOR Work Phone: [facility] 05-31-2023 08:02-0500 Body weight 79.74 kg Ingrid Rodríguez DEPARTMENT HEAD [employer]INING INSTRUCTOR Work Phone: [facility] 05-31-2023 08:02-0500 Diastolic blood pressure 72 mm[Hg] Ingrid Rodríguez DEPARTMENT HEAD [employer] TRAINING INSTRUCTOR Work Phone: [facility] 05-31-2023 08:02-0500 Systolic blood pressure 116 mm[Hg] Ingrid Rodríguez DEPARTMENT HEAD [employer] TRAINING INSTRUCTOR Work Phone: [facility] 05-10-2023 08:48-0500 Body height 170.2 cm Bernie Sanchez MD Work Phone: [facility] 05-10-2023 08:48-0500 Body mass index (BMI) [Ratio] 27.41 kg/m2 Bernie Sanchez MD Work Phone: [employer] 05-10-2023 08:48-0500 Body weight 79.38 kg Bernie Sanchez MD Work Phone: [employer] 05-10-2023 08:48-0500 Diastolic blood pressure 80 mm[Hg] Bernie Sanchez MD Work Phone: [employer] 05-10-2023 08:48-0500 Heart rate 76 /min Bernie Sanchez MD Work Phone: [employer] 05-10-2023 08:48-0500 Respiratory rate 16 /min Bernie Sanchez MD Work Phone: [employer] 05-10-2023 08:48-0500 Systolic blood pressure 130 mm[Hg] Bernie Sanchez MD Work Phone: [employer] 09-11-2022 17:15-0400 Body height 167.64 cm Kaylen Barker Other [facility] Other 09-11-2022 17:15-0400 Body mass index (BMI) [Ratio] 27.86 kg/m2 Kaylen Barker Other [facility] Other 09-11-2022 17:15-0400 Body temperature 97.3 [degF] Kaylen Barker Other [facility] Other 09-11-2022 17:15-0400 Body weight 78.29 kg Kaylen Barker Other [facility] Other 09-11-2022 17:15-0400 Respiratory rate 18 /min Kaylen Barker Other [facility] Other 09-11-2022 17:15-0400 SaO2% (BldA) [Mass fraction] 96 % Kaylen Barker Other [facility]k Other Encounters Encounter Date Encounter Type Care Provider Facility Start: 12-02-2023 End: 12-02-2023 ambulatory [facility] Start: 11-20-2023 End: 11-20-2023 ambulatory [facility] Start: 11-20-2023 Encounter for gynecological examination (general) (routine) without abnormal findings [facility] Start: 10-23-2023 End: 10-23-2023 ambulatory [facility] Start: 06-10-2023 End: 06-10-2023 Office outpatient visit 15 minutes Bernie Sanchez MD Work Phone: [facility] Comment on above: Dysphoric mood (Prim alvaro Dx) Start: 06-10-2023 End: 06-10-2023 ambulatory [facility] Start: 05-31-2023 End: 05-31-2023 Office outpatient visit 15 minutes Ingrid Dayo [employer]INING INSTRUCTOR Work Phone: [facility] Comment on above: Surveillance of cont raceptive implant (Primary Dx) Start: 05-31-2023 End: 05-31-2023 ambulatory [facility] Start: 05-10-2023 End: 05-10-2023 Office outpatient visit 15 minutes Bernie Sanchez MD Work Phone: [facility] Comment on above: Dysphoric mood (Prim alvaro Dx) Start: 05-10-2023 End: 05-10-2023 ambulatory [facility] Start: 09-11-2022 End: 09-11-2022 Patient encounter procedure KRIS Barker Work Phone: [facility] Work Phone: Start: 09-11-2022 End: 09-11-2022 ambulatory Kaylen Barker [facility] Work Phone: Start: 09-11-2022 Office outpatient vi sit 15 minutes Kaylen Barker [facility] Start: 11-10-2020 End: 11-11-2020 ambulatory [facility] Facility:[facility] Start: 10-20-2020 End: 12-13-2020 ambulatory [facility] Facility:[facility] Start: 10-13-2020 End: 10-14-2020 ambulatory [facility] Facility:[facility] Procedures Date Procedure Procedure Detail Performing Clinician Start: 12-02-2023 Follow-up visit Follow-up BERNIE SANCHEZ Start: 05-10-2023 Adult depression scr eening assessment Bernie Sanchez MD Work Phone: Start: 11-07-2022 Microscopic observat ion [Identifier] in Cervix by Cyto stain Bernie Sanchez MD Work Phone: Start: 09-11-2022 X-ray of right ankle AP RN Kaylen Barker Work Phone: Plan of Treatment Date Care Activity Detail Author Start: 11-07-2025 Screening for malign ant neoplasm of cervix Pap Smear [facility] Start: 06-09-2024 Adult BMI Screening Adult BMI Screen ing [facility] Start: 06-09-2024 Tobacco Screening Tobacco Screening [facility] Start: 05-31-2024 Adult BMI Screening Adult BMI Screen ing [facility] Start: 05-31-2024 Tobacco Screening Tobacco Screening [facility] Start: 05-10-2024 Adult BMI Screening Adult BMI Screen ing [facility] Start: 05-10-2024 Depression Screening Depression Scre ening [facility] Start: 05-10-2024 Tobacco Screening Tobacco Screening [facility] Start: 12-02-2023 End: 12-02-2023 Patient encounter procedure 12/02/2023 8:15 AM EDT [facility] [address] [place] [address] Bernie Sanchez MD [address] [place] [id number] [facility] Family Medicine Start: 11-08-2023 Adult BMI Follow Up Plan Adult BMI Follow Up Plan [facility] Start: 07-10-2023 DTaP,Tdap and Td Vaccines (7 - Td or Tdap) DTaP,Tdap and Td Vaccines (7 - Td or Tdap) [facility] Start: 06-10-2023 End: 06-10-2023 Patient encounter procedure 06/10/2023 8:15 AM EST Office Visit [facility] [address] [address] Bernie Sanchez MD [address] [place], [place] [id number] [facility] Start: 05-31-2023 End: 05-31-2023 Patient encounter procedure 05/31/2023 8:00 AM EST Office Visit [facility] Ob[facility]Gynecology [address] [place] [id number] Ingrid Sarkar, DEPARTMENT HEAD JUNIOR COLLE[employer] DIVE TRAINING INSTRUCTOR [address] [place], [place] [id number] [facility] Start: 12-07-2022 COVID-19 Vaccine ( season) COVID-19 Vaccine ( season) [facility] Start: 12-07-2022 Influenza vaccination Influenza Vacc ine [facility] Immunizations Immunization Date Immunization Notes Care Provider Fa cili 06-30-2019 hepatitis A vaccine, pediatric/adolescent dosage, 2 dose schedule Bernie Sanchez MD Work Phone: [facility] 06-30-2019 meningococcal B vacc ine, recombinant, OMV, adjuvanted Bernie Sanchez MD Work Phone: [facility] 11-12-2018 hepatitis A vaccine, pediatric/adolescent dosage, 2 dose schedule Bernie Sanchez MD Work Phone: [facility] 11-12-2018 meningococcal B vacc ine, recombinant, OMV, adjuvanted Bernie Sanchez MD Work Phone: [facility] 11-12-2018 meningococcal oligosaccharide (groups A, C, Y and W-135) diphtheria toxoid conjugate vaccine (MCV4O) Bernie Sanchez MD Work Phone: [facility] 07-16-2016 human papilloma viru s vaccine, quadrivalent Bernie Sanchez MD Work Phone: [facility] 07-16-2016 Human Papillomavirus 9-valent vaccine Bernie Sanchez MD Work Phone: [facility] 04-16-2016 human papilloma viru s vaccine, quadrivalent Bernie Sanchez MD Work Phone: [facility] 04-16-2016 Human Papillomavirus 9-valent vaccine Bernie Sanchez MD Work Phone: [facility] 02-06-2016 human papilloma viru s vaccine, quadrivalent Bernie Sanchez MD Work Phone: [facility] 02-06-2016 Human Papillomavirus 9-valent vaccine Bernie Sanchez MD Work Phone: [facility] 07-09-2013 tetanus toxoid, redu henry diphtheria toxoid, and acellular pertussis vaccine, adsorbed Bernie Sanchez MD Work Phone: [facility] 07-09-2013 varicella virus vaccine Placido nilo Sanchez MD Work Phone: [facility] 07-25-2006 diphtheria, tetanus toxoids and acellular pertussis vaccine Bernie Sanchez MD Work Phone: [facility] 07-25-2006 haemophilus influenz ae type b vaccine, conjugate unspecified formulation Bernie Sanchez MD Work Phone: [facility] 07-25-2006 measles, mumps and rubella virus vaccine Bernie Sanchez MD Work Phone: [facility] 07-25-2006 poliovirus vaccine, inactivated Bernie Sanchez MD Work Phone: [facility] 06-16-2002 diphtheria, tetanus toxoids and acellular pertussis vaccine Bernie Sanchez MD Work Phone: [facility] 06-16-2002 diphtheria, tetanus toxoids and acellular pertussis vaccine, 5 pertussis antigens Bernie Sanchez MD Work Phone: [facility] 06-16-2002 haemophilus influenz ae type b conjugate and Hepatitis B vaccine Bernie Sanchez MD Work Phone: [facility] 06-16-2002 hepatitis B vaccine, adult dosage Bernie Sanchez MD Work Phone: [facility] 04-13-2002 measles, mumps and rubella virus vaccine Bernie Sanchez MD Work Phone: [facility] 04-13-2002 varicella virus vaccine Placido Sanchez MD Work Phone: [facility] 2001 diphtheria, tetanus toxoids and acellular pertussis vaccine Bernie Sanchez MD Work Phone: [facility] 2001 diphtheria, tetanus toxoids and acellular pertussis vaccine, unspecified formulation Bernie Sanchez MD Work Phone: [facility] 2001 haemophilus influenz ae type b vaccine, conjugate unspecified formulation Bernie Sanchez MD Work Phone: [facility] 2001 poliovirus vaccine, inactivated Bernie Sanchez MD Work Phone: [facility] 2001 diphtheria, tetanus toxoids and acellular pertussis vaccine Bernie Sanchez MD Work Phone: [facility] 2001 diphtheria, tetanus toxoids and acellular pertussis vaccine, unspecified formulation Bernie Sanchez MD Work Phone: [facility] 2001 haemophilus influenz ae type b conjugate and Hepatitis B vaccine Bernie Sanchez MD Work Phone: [facility] 2001 haemophilus influenz ae type b vaccine, conjugate unspecified formulation Bernie Sanchez MD Work Phone: [facility] 2001 hepatitis B vaccine, adult dosage Bernie Sanchez MD Work Phone: [facility] 2001 poliovirus vaccine, inactivated Bernie Sanchez MD Work Phone: [facility] 2001 diphtheria, tetanus toxoids and acellular pertussis vaccine Bernie Sanchez MD Work Phone: [facility] 2001 diphtheria, tetanus toxoids and acellular pertussis vaccine, unspecified formulation Bernie Sanchez MD Work Phone: [facility] 2001 haemophilus influenz ae type b conjugate and Hepatitis B vaccine Bernie Sanchez MD Work Phone: [facility] 2001 haemophilus influenz ae type b vaccine, conjugate unspecified formulation Bernie Sanchez MD Work Phone: [facility] 2001 hepatitis B vaccine, adult dosage Bernie Sanchez MD Work Phone: [facility] 2001 poliovirus vaccine, inactivated Bernie Sanchez MD Work Phone: [facility] Payers Date Payer Category Payer Self-pay [id number] 2020 Unknown [employer] [facility] [id number] 2020-Present [phone] [address] [place] [address] [id number] 2001 Unknown [id number] 2001 Unknown [id number] 2001 Unknown [id number] 2001 Unknown [id number] 2001 Unknown [id number] 2001 Unknown [id number] 2001 Unknown [id number] 2001 Unknown [id number] 2001 Unknown [id number] 1959 Unknown [id number] Unknown [facility] [id number] Unknown [id number] Social History Date Type Detail Facility Unknown if ever smoked [facility] Work Phone: Start: 04-20-2020 End: 05-10-2023 Sex Assigned At [facility] [employer] Other Start: 2001 Sex Assigned At Female F [facility] Start: 10-29-2022 [facility] Start: 10-29-2022 Tobacco use and exposure Smokeless tobacco non-user [facility] Start: 05-10-2023 End: 06-10-2023 Alcohol intake Current drinker of alcohol (finding) [facility] Start: 04-20-2020 End: 05-10-2023 History of Social function [facility] Adolescent depressio n screening assessment 3 [facility] Start: 03-07-2023 Alcohol Comment socially [facility] Start: 2001 Sex Assigned At Not on file P [facility] Clinical Notes 06-20-2020 to 06-10-2023 Bernie Sanchez MD - 06/10/2023 8:15 AM Karon Sarkar APRN-[employer] DIVE TRAINING INSTRUCTOR - 05/31/2023 8:00 AM Cate Sanchez MD - 05/10/2023 8:45 AM EST Note Date & Type Note Facility 06-10-2023 History of Present illness Narrative Images from the original note were not included. [address] [place] [id number] SUBJECTIVE: Patient ID: Feliciano Alcocer is a 23 y.o. female. 23 yo WF with desire The following portions of the patient's history were reviewed and updated as appropriate: allergies, current medications, past family history, past medical history, past social history, past surgical history and problem list. REVIEW OF SYSTEMS: Review of Systems Respiratory: Negative. Cardiovascular: Negative. Gastrointestinal: Negative. Genitourinary: Negative. Psychiatric/Behavioral: Positive for dysphoric mood. PHYSICAL EXAMINATION: Vitals: 06/10/23 0807 BP: 120/70 BP Site: Left Arm BP Postition: Sitting BP CUFF SIZE: M (9-13 inches) Pulse: 74 Resp: 16 Temp: 36.6 C (97.8 F) TempSrc: Tympanic Weight: 80.3 kg (177 lb) Physical Exam Vitals and nursing note reviewed. Constitutional: Appearance: Normal appearance. HENT: Head: Normocephalic and atraumatic. Cardiovascular: Rate and Rhythm: Normal rate and regular rhythm. Pulses: Normal pulses. Heart sounds: Normal heart sounds. Pulmonary: Effort: Pulmonary effort is normal. Breath sounds: Normal breath sounds. Skin: General: Skin is warm and dry. Neurological: General: No focal deficit present. Mental Status: She is alert and oriented to person, place, and time. ASSESSMENT/PLAN: Diagnoses and all orders for this visit: Dysphoric mood Other orders - escitalopram (LEXAPRO) 10 mg tablet; Take 1 tablet (10 mg total) by mouth in the morning. Follow-up: Lexapro 10mg 1 qd documented in this encounter [employer] 05-31-2023 History of Present illness Narrative Images from the original note were not included. HPI Subjective Feliciano Alcocer is a 23 y.o. female who presents for contraception follow up. Current contraception: Nexplanon . Periods are non existent due to Nexplanon. No intermenstrual bleeding, spotting, or discharge. The patient has no complaints today. 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 Menstrual History: No LMP recorded. Patient has had an implant. The following portions of the patient's history were reviewed and updated as appropriate: allergies, current medications, past family history, past medical history, past social history, past surgical history, problem list, and medication reconciliation was completed including current medication and post discharge medication. Review of Systems Constitutional: Negative. Respiratory: Negative. Negative for chest tightness and shortness of breath. Cardiovascular: Negative. Negative for chest pain and palpitations. Gastrointestinal: Negative. Negative for constipation, diarrhea, nausea and vomiting. Genitourinary: Negative. Negative for menstrual problem. Neurological: Negative. Psychiatric/Behavioral: Negative. Objective BP 116/72 Ht 170.2 cm (5' 7 ) Wt 79.7 kg (175 lb 12.8 oz) BMI 27.53 kg/m Physical Exam Vitals and nursing note reviewed. Constitutional: Appearance: Normal appearance. Comments: Healed Nexplanon insertion site as marked above. No redness, edema or bruising. Implant palpable under skin. Cardiovascular: Rate and Rhythm: Normal rate and regular rhythm. Pulses: Normal pulses. Heart sounds: Normal heart sounds. Pulmonary: Effort: Pulmonary effort is normal. Breath sounds: Normal breath sounds. Musculoskeletal: General: Normal range of motion. Skin: General: Skin is warm and dry. Neurological: Mental Status: She is alert and oriented to person, place, and time. Psychiatric: Mood and Affect: Mood normal. Behavior: Behavior normal. Thought Content: Thought content normal. Judgment: Judgment normal. Assessment / Plan Feliciano was seen today for contraception. Diagnoses and all orders for this visit: Surveillance of contraceptive implant 23 y.o. continuing Nexplanon , no contraindications. Educational information provided through [employer]. All questions answered. HPV vaccine is recommended between 9-45 yo. Can be received at [facility] or the health department. Consistent condom use for STD prevention. RTO for annual (due November 2023) or sooner as needed. COLEMAN ALANIS, [facility] Ingrid Sarkar, DEPARTMENT HEAD J[employer]IOR [employer]LE[employer] DIVE TRAINING INSTRUCTOR Ingrid Sarkar APRN-TENA 05/31/23 0819 documented in this encounter [facility] 05-10-2023 History of Present illness Narrative Images from the original note were not included. [address] [place] [id number] SUBJECTIVE: Patient ID: Feliciano Alcocer is a 23 y.o. female. 23 yo WF with recent ankle surgery 3 months, recovering slowly, works two jobs , and wrapping school The following portions of the patient's history were reviewed and updated as appropriate: allergies, current medications, past family history, past medical history, past social history, past surgical history and problem list. REVIEW OF SYSTEMS: Review of Systems Respiratory: Negative. Cardiovascular: Negative. Gastrointestinal: Negative. Genitourinary: Negative. PHYSICAL EXAMINATION: Vitals: 05/10/23 0848 BP: 130/80 BP Site: Left Arm BP Postition: Sitting BP CUFF SIZE: M (9-13 inches) Pulse: 76 Resp: 16 Weight: 79.4 kg (175 lb) Height: 170.2 cm (5' 7 ) Physical Exam ASSESSMENT/PLAN: Feliciano was seen today for requesting a mood stabilizer. Diagnoses and all orders for this visit: Dysphoric mood Other orders - escitalopram (LEXAPRO) 10 mg tablet; Take 1 tablet (10 mg total) by mouth in the morning. Follow-up: Lexapro 10mg 1 qd Recheck in 28d Exercise as tolerated documented in this encounter [facility] 09-11-2022 Evaluation note Encounter Date Diagnosis Assessment Notes Sep, Acute right ankle pain (ICD-10 - M25.571) No new fracture. Xray with evidence of osteochondral lesion of talar dome. Discussed with patient this is may be causing new pain in area. Ankle wrapped with harmony wrap. Ice and elevation encouraged. PRN aleve, tylenol for pain. Avoid long periods of standing as possible. Patient saw Dr. Mora DAVIDSON for previous ankle fracture. Discussed would recommend FU, will send xray report. Sep, Disorder of cartilage, unspecified (ICD-10 - M94.9) Xray with evidence of osteochondral lesion of talar dome. [employer] Other 08-05-2021 NotePROCEDURE: XR ANKLE RT MIN 3 VIEWS HISTORY: Pain of right ankle joint ; lateral malleolus avulsion fracture right ankle COMPARISON: XR ankle right 10/13/2020, 10/07/2020 FINDINGS: BONES:Stable thin ossifications are typically lateral malleolus. No visible callus formation. SOFT TISSUES:Lateral soft tissue swelling. EFFUSION:None visible. OTHER: Negative. IMPRESSION: 1. Stable minimally displaced cortical avulsion fracture from tip of lateral malleolus versus ununited secondary ossification center versus sequela of remote injury. Acute/subacute avulsion fracture is still favored. 2. Prominent lateral swelling suggesting soft tissue injury. Electronically authenticated by: ROSMERY MIRANDA Date: 2020-11-10 12:13[facility]07-08-2021 NotePROCEDURE: XR ANKLE RT MIN 3 VIEWS COMPARISON: 10/07/2020 HISTORY: Pain of right ankle joint FINDINGS: BONES:Stable 4 mm avulsion fractures inferior lateral malleolus. No new fracture or dislocation. SOFT TISSUES:Moderate lateral soft tissue swelling EFFUSION:None visible. OTHER: Negative. IMPRESSION: Stable avulsion fracture inferior lateral malleolus with associated soft tissue swelling Electronically authenticated by: BERNIE KIRBY Date: 2020-10-13 16:34[facility]03-17-2021 NoteHNO ID: [id number] Author: Hao Brown Service: ? Author Type: Physician Type: Progress Notes Filed: 06/22/2020 10:03 AM Note Text: [facility] Office Visit Documentation Note [facility] Sports Medicine Orthopaedic and Rheumatologic [place] REASON FOR VISIT / CHIEF COMPLAINT SERVICE DATE: June 22, 2020 PCP: Bernie Melendez MD CHIEF COMPLAINT: Feliciano Alcocer is a 20 year old female who presents today for follow up office visit for her right hip pain. She states her injury is from running many years ago. She was last seen in clinic 10/01/19 and received a corticosteroid injection with no relief. She states her pain today while seated is 5/10 and dull/aching. Pain at worst with exercise, e.g. squatting/lunging 11/15. She has completed some physical therapy and reports it was helpful. Patient presents with: Right Hip - Established Patient, Pain HISTORY OF PRESENT ILLNESS (HPI) PAIN EVALUATION 06/22/2020 0923 Pain Level: 5 Pain Location: Hip-Right Pain at worst 11/15 Description: Aching;Dull Duration Units: Years Frequency: Intermittent Intervention: Relaxation;Exercise Brief Review: right hip pain Any new injury, since being seen last: No REVIEW OF SYSTEMS ROS: Neurologic: Any numbness or tingling in the LOCAL AREA? No Endocrine: Any diagnosis of diabetes? No ALLERGIES ALLERGIES No Known Allergies PAST MEDICAL HISTORY No past medical history on file. PHYSICAL EXAMINATION PHYSICAL EXAMINATION: Body Habitus:well nourished and no acute distress Psych: normal Sensation: sensation to light touch is grossly normal bilaterally Swelling: no swelling noted Specific MSK Exam Ortho Exam FADIR pain. Good ROM otherwise. Gluteal active - no pain RADIOLOGY: IMAGING: No imaging was performed today. ASSESSMENT / PLAN CLINICAL IMPRESSION / ASSESSMENT: (S73.191D) Tear of right acetabular labrum, subsequent encounter (primary encounter diagnosis) (S73.191A) Tear of right acetabular labrum, initial encounter (M25.551) Pain of right hip joint RECOMMENDATION / PLAN: -CSI and PT failed. Has stopped swimming in college. Wants to do competitive crossfit. Discussed overall need to conform to good form - etc. Discussed consult to Dr. Dukes MRI from 07/2019 Impression IMPRESSION: Nondisplaced tear of the right anterior superior acetabular labrum. Verbal health education was given to patient. Patient verbalizes understanding and agrees with the treatment plan as detailed above. Hao Brown D.O. [facility] Orthopaedic and Rheumatologic [place] Team Physician, [facility] Consulting Physician, [place] Chapis Turner, Pathology Collector [phone] [facility] 06-20-2020 NoteHNO ID: [id number] Author: Toy (Pt Cfne) Opfer Service: ? Author Type: Physical Therapist Type: Progress Notes Filed: 06/20/2020 10:33 AM Note Text: 06/20/2020 [facility] PHYSICAL THERAPY DISCONTINUANCE OF CARE Plan of Care Period: Start of Care Date: 09/01/19 Last Visit Date: 10/14/2019 Therapy Program: The following is a summary of the interventions provided for this episode of care; Therapeutic exercise, Neuromuscular re-education, Manual therapy and Patient/Family/Caregiver Education Assessment: The following is the goal status: Goals for Episode of Care: created on 09/01/19 through 10/28/19 [place] in home exercise program. Met Patient will decrease pain rating by 2 points to meet minimal clinical important difference for numeric pain rating scale. Progressing Patient will increase active ROM of right hip flexion to 115 degrees without pain to allow pt to improved performance of ADLs and improve ability to swim with pain. Met Patient will increase strength of core and hip abductors to 5/5 to allow for return to prior functional status and perform ADLs. Progressing Perform 20 minutes of swimming with decreased report of symptoms/pain in 8 weeks. Progressing Improve postural awareness. Met Based on the most recent progress report, patient was progressing as expected toward functional goals based on home exercise program compliance. Reason for Discontinuation of Care: Patient has not returned to therapy or scheduled additional follow-up appointments. Toy Mayfield, PT, [facility]Evaluation noteNo assessment information availableTogus Va Medical Center Ctr Work Phone: Evaluation note* Diagnosis Dysphoric mood- Primary [facility]* Diagnosis Surveillance of contraceptive implant- Primary [facility]* Diagnosis Dysphoric mood- Primary documented [facility] System[facility] general Narrative - Reported* Type Description Date Medical History EXERCISE INDUCED ASTHMA Medical History Acne zulily Other InstructionsNot on filedocumented in this encounter [facility] SystemInstructions* Attachments The following attachments cannot be sent through Care Everywhere. * Etonogestrel, ADULT (Tanzanian) * Gynecological Exam (Tanzanian) * Human papillomavirus (HPV) vaccine (Tanzanian) [facility] SystemInstructionsNot on file documented in this encounterProM[facility] Summary Purpose Family History No Family History Records FoundNo Family History Records FoundNo Family History Records FoundNo Family History Records FoundNo Family History Records Found Advance Directives No Advanced Directives Records Found Advance Directive Response Recorded Date/ Time Advance Directives No October 11 0 7:24am Additional Source Comments INFORMATION SOURCE (unrecogn ized section and content) DATE CREATED AUTHOR 07/08/2019 [facility] DATE CREATED AUTHOR AUTHOR'S ORGANIZ ATION 12/30/2020 [facility] DATE CREATED AUTHOR AUTHOR'S ORGANIZ ATION 05/24/2021 [facility] DATE CREATED AUTHOR AUTHOR'S ORGANIZ ATION 09/17/2022 [facility] DATE CREATED AUTHOR AUTHOR'S ORGANIZ ATION [facility]03[facility]20[facility] Care Teams (unrecognized sec tion and content) Team Status: Inactive Member Role Status Dates Kaylen Barker , DEPARTMENT HEAD JUNIOR COLLEGE Attending Provider Active Diesel Engine Tester Relationship Specialty Start Date End Date Bernie Sanchez MD [address] [place] [address] PCP - General Family Medicine 12/03/16 [employer]el Engine Tester Relationship Specialty Start Date End Date Bernie Sanchez MD [address] [place] [address] PCP - General Family Medicine 12/03/16 Diesel Engine Tester Relationship Specialty Start Date End Date Bernie Sanchez MD [address] [address] PCP - General Family Medicine 12/03/16 Goals (unrecognized section and content) Goals may be documented in a n alternate section Reason for Visit (unrecogniz ed section and content) Reason Comments Contraception Reason Comments requesting a mood stabilizer FOR RECORDS PERTAINING TO PATIENTS WHO ARE OR HAVE BEEN ENROLLED IN A CHEMICAL DEPENDENCY/SUBSTANCEABUSE PROGRAM, SOME INFORMATION MAY BE OMITTED. This clinical summary was aggregated from multiple sources. Caution should be exercised in using it in the provision of clinical care. This summary normalizes information from multiple sources, and as a consequence, information in this document may materially change the coding, format and clinical context of patient data. In addition, data may be omitted in some cases. CLINICAL DECISIONS SHOULD BE BASED ON THE PRIMARY CLINICAL RECORDS. [email or web address] provides no warranty or guarantee of the accuracy or completeness of information in this document.
== END 2023-12-31 08:51 | disposition home or self-care (01) ==
LOC: EC 08:51
PROVIDERS: PCP Family Medicine; Visit Provider Podiatrist Foot & Ankle Surgery
DX: M25.571 Pain in right ankle and joints of right foot (principal)
CPT/HCPCS: 73610